=== PATIENT | female | born 1985 | race Caucasian/White ===

== ENCOUNTER 2020-09-19 12:02 | Inpatient (IN) | payer OTHER ==
[~2020-09-19 12:02] MED LIST: ELECTROLYTE-148 SOLN 1,000 ML IV SCH
[2020-09-19 12:59] LABS: BASO % 0.3 % (0-2.0); EOS % 0.9 % (0-4.5); HEMATOCRIT 37.9 % (32.4-45.2); HEMOGLOBIN 13.1 GM/dL (10.7-15.3); LYMPH % 20.3 % (8-40); MCH 29.6 pg (25.7-33.7); MCHC 34.5 g/dl (32.0-36.0); MEAN CELL VOLUME 85.8 fl (80-96); MEAN PLT VOLUME 9.1 fl (7.5-11.1); MONO % 8.3 % (3.8-10.2); NEUT % 70.2 % (42.8-82.8); PLATELET COUNT 260 K/MM3 (134-434); RBC 4.41 M/mm3 (3.60-5.2); RDW 13.1 % (11.6-15.6); WHITE BLOOD COUNT 10.7 K/mm3 (4.0-10.0)
[2020-09-19 13:01] LABS: RETICULOCYTES 2.42 % (0.5-1.5)
[2020-09-19 13:06] LABS: INR 0.87 (0.83-1.09); PROTHROMBIN TIME (PATIENT) 10.7 SEC (9.7-13.0)
[2020-09-19 13:07] VITALS: BMI 29.2
[2020-09-19 13:34] LABS: BLOOD UREA NITROGEN 12.9 mg/dL (7-18); CALCIUM 8.4 mg/dL (8.5-10.1)
[2020-09-19 13:36] LABS: GAMMA GLUTAMYL TRANSPEPTIDASE 79 U/L (5-85)
[2020-09-19 13:37] LABS: SGOT/AST 86 U/L (15-37); SGPT/ALT 136 U/L (13-61); URIC ACID 6.7 mg/dL (2.6-7.2)
[2020-09-19 13:38] LABS: CREATININE 0.6 mg/dL (0.55-1.3)
[2020-09-19] MEDS ORDERED: CITRIC ACID/SODIUM CITRATE 30 ML UNIT-DOSE CUP PO ONE ×2 (18:00→20:04)
[2020-09-19] MEDS ORDERED: morphine SULFATE/PF 0.5 MG/ML (2cc Syringe - QUVA) ONE (19:57)
[2020-09-19] MEDS ORDERED: ELECTROLYTE-148 SOLN 500 ML IV ONE (20:01)
[2020-09-19] MEDS ORDERED: ELECTROLYTE-148 SOLN 1,000 ML IV SCH (20:15)
[2020-09-19] MEDS ORDERED: OXYTOCIN 20 UNITS in 0.9% NS 20 UNIT/1,000 ML INFUS.BAG IV ONE (21:14)
[2020-09-19] MEDS ORDERED: oxyCODONE HCL 5 MG TABLET PO PRN (21:28)
[2020-09-19] MEDS ORDERED: IBUPROFEN 800 MG/8 ML IJ IVPB PRN (21:28)
[2020-09-19] MEDS ORDERED: SENNOSIDES/DOCUSATE COMBO (SENNA PLUS) TABLET (UD) PO PRN (21:28)
[2020-09-19] MEDS ORDERED: METHYLERGONOVINE MALEATE 0.2 MG/1 ML AMP IM PRN (21:28)
[2020-09-19] MEDS ORDERED: OXYTOCIN 20 UNITS in 0.9% NS 20 UNIT/1,000 ML INFUS.BAG IV SCH (21:30)
[2020-09-19 21:54] LABS: CORD BASE EXCESS -2.3 mmol/L (0-2); CORD PCO2 52.3 mmHg (30-78); CORD pH 7.297 (7.14-7.44)
[2020-09-20 01:44] LABS: HIV INTERPRETATION NEGATIVE (NEGATIVE)
[2020-09-20 09:06] LABS: BASO % 0.3 % (0-2.0); EOS % 0.5 % (0-4.5); HEMATOCRIT 35.2 % (32.4-45.2); HEMOGLOBIN 11.7 GM/dL (10.7-15.3); LYMPH % 19.6 % (8-40); MCH 29.2 pg (25.7-33.7); MCHC 33.2 g/dl (32.0-36.0); MEAN CELL VOLUME 87.9 fl (80-96); MEAN PLT VOLUME 9.4 fl (7.5-11.1); MONO % 5.7 % (3.8-10.2); NEUT % 73.9 % (42.8-82.8); PLATELET COUNT 240 K/MM3 (134-434); RBC 4.01 M/mm3 (3.60-5.2); RDW 13.6 % (11.6-15.6); WHITE BLOOD COUNT 12.3 K/mm3 (4.0-10.0)
[2020-09-20] MEDS: NIFEdipine E.R. 30 MG TABLET PO SCH (10:25)
[2020-09-20] MEDS: LABETALOL HCL 200 MG TABLET (FP) PO SCH ×3 (10:27→22:00)
[2020-09-20] MEDS: PRENATAL VITAMINS W/ FOLIC ACID TABLET (FP) PO SCH (10:27)
[2020-09-20] MEDS: oxyCODONE HCL 5 MG TABLET PO PRN ×2 (11:08→17:26)
[2020-09-20] MEDS: SIMETHICONE 80 MG TAB.CHEW (FP) PO PRN ×2 (11:09→17:28)
[2020-09-20] MEDS: IBUPROFEN 600 MG TABLET (FP) PO PRN ×2 (17:27→22:01)
[2020-09-20] MEDS ORDERED: BISACODYL 10 MG SUPP.RECT RC PRN (21:29)
[2020-09-20] MEDS: ACETAMINOPHEN 325 MG TABLET (FP) PO PRN (22:02)
[2020-09-21] MEDS: PRENATAL VITAMINS W/ FOLIC ACID TABLET (FP) PO SCH (09:37)
[2020-09-21] MEDS: NIFEdipine E.R. 30 MG TABLET PO SCH (12:28)
[2020-09-21] MEDS: LABETALOL HCL 200 MG TABLET (FP) PO SCH ×2 (12:28→21:08)
[2020-09-21] MEDS: ACETAMINOPHEN 325 MG TABLET (FP) PO PRN (21:09)
[2020-09-21] MEDS: SIMETHICONE 80 MG TAB.CHEW (FP) PO PRN (21:09)
[2020-09-21] MEDS: oxyCODONE HCL 5 MG TABLET PO PRN (21:09)
[2020-09-22] MEDS: LABETALOL HCL 200 MG TABLET (FP) PO SCH (09:06)
[2020-09-22] MEDS: SIMETHICONE 80 MG TAB.CHEW (FP) PO PRN (09:06)
[2020-09-22] MEDS: NIFEdipine E.R. 30 MG TABLET PO SCH (09:06)
[2020-09-22] MEDS: ACETAMINOPHEN 325 MG TABLET (FP) PO PRN (09:06)
[2020-09-22] MEDS: PRENATAL VITAMINS W/ FOLIC ACID TABLET (FP) PO SCH (09:07)
[2020-09-22] MEDS: IBUPROFEN 600 MG TABLET (FP) PO PRN (09:07)
[2020-09-22 09:26] VITALS: BP 147/89; PULSE 91; TEMP 98.1
== END 2020-09-22 10:45 | disposition home or self-care (01) | DRG 540 ==
LOC: JDEL 12:02 → JLDR 12:30 → J3W 09-20 00:31
PROVIDERS: ADMIT Obstetrics & Gynecology; ATTEND Obstetrics & Gynecology
PROC: 10D00Z1 Extraction of Products of Conception, Low, Open Approach (ICD-10-PCS; principal; 2020-09-19)
DX: O34.211 Maternal care for low transverse scar from previous cesarean delivery (principal); O60.14X0 Preterm labor third trimester with preterm delivery third trimester, not applicable or unspecified; O36.5930 Maternal care for other known or suspected poor fetal growth, third trimester, not applicable or unspecified; O11.5 Pre-existing hypertension with pre-eclampsia, complicating the puerperium; O32.8XX0 Maternal care for other malpresentation of fetus, not applicable or unspecified; Z3A.32 32 weeks gestation of pregnancy; Z37.0 Single live birth
CPT/HCPCS: 36415; 36600; 80048; 82803; 82977; 83010; 84450; 84460; 84550; 85025; 85032; 85045; 85610; 85730; 86780; 86850; 86900; 86901; 87389; 88307-TC; C9803; U0003; U0005